=== PATIENT | female | born 1940 | race Caucasian/White ===

== ENCOUNTER 2023-11-30 11:28 | Day surgery (SDC) | payer MEDICARE ==
[~2023-11-30] VITALS: Ht 167.6 cm; Wt 77.8 kg
[~2023-11-30 11:28] MED LIST: ASPIRIN 81M81 MG/TA2 PO; CARDIZEM LA120 MG PO; CRESTOR5 MG PO; ELIQUIS 5MG PO; Famotidine 20 MG TAB PO SCH; GLUCOPHAGE XR500 M1 PO; HYDROmorphone 1 MG/1 ML SYRINGE [PACU/SDC ONLY] IV PRN; LR 1,000 ML IV SCH; Ondansetron 4 MG/2 ML VIAL IV PRN; SYNTHROID0.075 MG/T PO; VESICARE10 MG PO; droPERidol 2.5 MG/ML 2 ML VIAL IV PRN; fentaNYL 50 MCG/ML 1 ML SYRINGE/VIAL [PACU/SDC ONLY] IV PRN; hydrALAZINE 20 MG/ML 1 ML VIAL IV PRN
[2023-11-30 12:46] VITALS: BP 142/86; PULSE 80; TEMP 97.6
[2023-11-30] MEDS ORDERED: Ketorolac 30 MG/ML VIAL ONE (14:19)
[2023-11-30] MEDS ORDERED: Ondansetron 4 MG/2 ML VIAL ONE (14:19)
[2023-11-30] MEDS ORDERED: fentaNYL 50 MCG/ML 2 ML VIAL ONE (14:19)
[2023-11-30] MEDS ORDERED: dexAMETHasone 10 MG/ML VIAL ONE (14:19)
[2023-11-30] MEDS ORDERED: NS 10 ML IV ONE (14:19)
[2023-11-30] MEDS ORDERED: Iohexol 350 - 100 ML VIAL URETER-B ONE ×2 (14:30)
[2023-11-30] MEDS ORDERED: Lidocaine 2% (20 MG/ML) 20 ML UROJET UR ONE (14:30)
[2023-11-30] MEDS ORDERED: oxyCODONE 5 MG TAB PO PRN (16:15)
[2023-11-30] MEDS ORDERED: Naloxone 0.4 MG/ML VIAL IV PRN (16:15)
[2023-11-30] MEDS ORDERED: Hyoscyamine 0.125 MG Sublingual TAB SL PRN (16:15)
[2023-11-30] MEDS ORDERED: Ondansetron 4 MG/2 ML VIAL IV PRN (16:15)
[2023-11-30] MEDS ORDERED: Acetaminophen 325 MG TAB PO PRN (16:15)
[2023-11-30 17:07] VITALS: BP 146/96; PULSE 118; TEMP 97.6
[2023-11-30 17:10] VITALS: TEMP 97
[2023-11-30] MEDS ORDERED: Acetaminophen 500 MG TAB PO SCH (17:10)
[2023-11-30 17:20] VITALS: BP 144/79; PULSE 92
--- NOTE | 2023-11-30 18:13 | NUR ---
1707- PT RETURNS FROM PACU VIA CART TO [facility]. MONITORS ON AND ALARMS SET. CALL LIGHT WITHIN REACH. REPORT RECEIVED FROM ENRIQUE DUENAS. PT ALERT AND ORIENTED. ALREADY ASKING WHEN SHE CAN GO HOME/ PT REQUESTS FOOD AND DRINK. PT DENIES ANY PAIN OR NAUSEA. 1720- PT TAKING FOOD AND DRINK WELL. NO COMPLICATIONS NOTED. 1735- DISCHARGE INSTRUCTIONS GIVEN TO PT. ALL QUESTIONS ANSWERED. PT THEN AMBULATES TO BATHROOM. 1750- PT TRANSFERRED OUT OF THE HOSPITAL VIA WHEELCHAIR. TAKEN OUT BY ANOTHER NURSE AND ASSIST TO PRIVATE VEHICLE DRIVEN BY FRIEND.
== END 2023-11-30 17:50 | disposition home or self-care (01) ==
LOC: SDCO 11:28
DX: C67.9 Malignant neoplasm of bladder, unspecified (principal); N39.41 Urge incontinence; R31.0 Gross hematuria; R35.0 Frequency of micturition; R35.1 Nocturia; Z79.82 Long term (current) use of aspirin; Z79.01 Long term (current) use of anticoagulants
CPT/HCPCS: C1769; J0690; J1100; J1885; J1920; J2405; J2704; J3010; J7120; Q9967

== ENCOUNTER 2023-12-03 08:55 | Inpatient (IN) | payer MEDICARE ==
[~2023-12-03] VITALS: Ht 167.6 cm; Wt 78.6 kg
[2023-12-03] VITALS (8 sets, daily range): BP systolic 100–147; BP diastolic 63–97; PULSE 80–93; TEMP 97.9–98.4
[~2023-12-03 08:55] MED LIST changes: -Famotidine 20 MG TAB PO SCH; -HYDROmorphone 1 MG/1 ML SYRINGE [PACU/SDC ONLY] IV PRN; -LR 1,000 ML IV SCH; -Ondansetron 4 MG/2 ML VIAL IV PRN; -droPERidol 2.5 MG/ML 2 ML VIAL IV PRN; -fentaNYL 50 MCG/ML 1 ML SYRINGE/VIAL [PACU/SDC ONLY] IV PRN; -hydrALAZINE 20 MG/ML 1 ML VIAL IV PRN
--- NOTE | 2023-12-03 11:20 | NUR ---
Patient admitted to room 325. Arrival via EMS from [place]. Report from Nurse in [place]. Lucero to DD with blood urine/clots noted. Int. Medication list corrected from list patient provided. Hospitalsit and urology made aware of her arrival.
[2023-12-03] MEDS ORDERED: NS Irrig Soln 3000 ML SOLN IRP PRN (12:00)
--- NOTE | 2023-12-03 12:15 | NUR ---
[address] bailey inserted as ordered. Cbi started. Patient tolerted well. Minimal reports of pain. Patient remains NPO. Hospitals[facility] rounding.
[2023-12-03] MEDS ORDERED: cefTRIAXone 1 G in Water For Injection,Sterile 10 ML IV SCH (12:30)
--- NOTE | 2023-12-03 13:05 | NUR ---
Patient resting in bed. CBI to slow rate. Clearing nicely. No clots seen. Iv antibioitcs as ordered. Spoke with Marva, made her aware unable to obtain urine culture due to CBI started, she is aware Culture was obtained at [place].
[2023-12-03] MEDS ORDERED: Ondansetron 4 MG/2 ML VIAL IV PRN (13:15)
[2023-12-03] MEDS ORDERED: Insulin Lispro (HumaLOG) SQ SCH (17:00)
--- NOTE | 2023-12-03 18:29 | NUR ---
Patient resting in bed. rounded this afternoon and plan of care reviewed. questions answered. She did well with dinner. no n/v. Cbi to slow/mod rate. pink tinged output, minimal clots seen. int. scds ble. Will report off to nightnurse
[2023-12-03] MEDS ORDERED: Rosuvastatin 5 MG **** subs to Atorvastatin 10 MG PO SCH (21:00)
[2023-12-03] MEDS ORDERED: Atorvastatin 10 MG TAB PO SCH (21:00)
[2023-12-03] MEDS ORDERED: dilTIAZem CD (24-HR) 120 MG CAP PO SCH (21:00)
[2023-12-04] VITALS (11 sets, daily range): BP systolic 109–134; BP diastolic 71–89; PULSE 75–94; TEMP 97.5–98.3
--- NOTE | 2023-12-04 01:30 | NUR ---
PT C/O INCREASED BLADDER DISCOMFORT, NOT SEEING ANY DRAINAGE FROM MARCIAL, CBI RUNNING AT MODERATE RATE, ASPIRATED APPROX 30CC OF DARK RED CLOTS USING 60CC SYRINGE AND STERILE H20, MARCIAL IMMEDIATELY BEGAN DRAINING PINK TO RED URINE. PT REPORTS FEELING DECREASED DISCOMFORT AFTERWARDS.
[2023-12-04] MEDS ORDERED: Acetaminophen 500 MG TAB PO PRN (07:15)
[2023-12-04] MEDS ORDERED: oxyCODONE 5 MG TAB PO PRN (07:15)
[2023-12-04] MEDS ORDERED: Morphine 4 MG/ML VIAL IV PRN (07:15)
[2023-12-04] MEDS ORDERED: Hyoscyamine 0.125 MG Sublingual TAB SL PRN (07:15)
[2023-12-04 07:19] LABS: BASO # 0.1 K/mm3 (0.0-0.2); BASO % 0.8 % (0.0-2.0); EOS # 0.2 K/mm3 (0.0-0.7); HEMOGLOBIN 11.5 g/dl (12.5-16.0); LYMPH # 2.4 K/mm3 (1.2-3.4); LYMPH % 32.9 % (20.0-51.0); MEAN CELL VOLUME 94 fl (80.0-100.0); MEAN CORPUSCULAR HEMOGLOBIN 32 pg (27-31); MEAN CORPUSCULAR HGB CONC 34 g/dl (33.0-37.0); MEAN PLATELET VOLUME 9.9 fl (7.4-10.4); MONO # 0.8 K/mm3 (0.1-0.6); MONO % 10.2 % (1.7-9.3); PLATELET COUNT 253 K/mm3 (130-400); RED BLOOD COUNT 3.63 M/mm3 (4.10-5.30)
[2023-12-04 07:28] LABS: CALCIUM 8.5 mg/dL (8.4-10.2); CREATININE, serum 0.81 mg/dL (0.57-1.11); POTASSIUM 4.3 mEq/L (3.5-4.5)
[2023-12-04] MEDS ORDERED: Dextrose 50% Water 25 GM/50 ML SYRINGE IV PRN (07:30)
[2023-12-04] MEDS ORDERED: Glucagon 1 MG VIAL IM PRN (07:30)
[2023-12-04] MEDS ORDERED: Dextrose (Glucose) 15 GM (4 x 3.75 GM) Chewable TABLET PACK PO PRN (07:30)
--- NOTE | 2023-12-04 07:41 | NUR ---
Patient called out reporting pelvic pain/discomfort. Hand irrigation completed with x3. Multiple clots obtained. Dr. Torres notifed and orders received. Patient feeling better now. Heavy blankets removed, she reports feeling warm this am. Breakfast ordered, her daughter at bedside.
[2023-12-04] MEDS ORDERED: Solifenacin 5 MG **** subs to Oxybutynin XL 5 MG PO SCH (09:00)
--- NOTE | 2023-12-04 09:59 | NUR ---
Hospitalist and rounded, plan of care reviewed. Patient in good spirits without pain. Lucero to DD with pink output, no clots seen. Jose hatfield
--- NOTE | 2023-12-04 10:04 | NUR ---
SW met with patient to complete intake and discuss discharge planning. Patient informed SW that she lives in her home alone in [place], her nearest relative is her cousin Candelario Zeng that lives in [place]. Patient informed SW that she has DPOA on file in her home that are her children Pamela Del Real and Shira Alicia (she does not have their phone information available at this time). Currently NOK listed on her chart is her who past 3 yrs ago and needs to be updated/removed. SW will make note with SW treating and pumping supervisor. Patient informed SW that her PCP is MARYLIN Carrero in [place], and pharmacy of choice is [facility] in [place], that assist with mail delivery prescriptions. Patient reports that currently she only uses a shower chair in her home, no other DMEs reported. Patient reports that she is independent with her ADLs, but is interested in HH care due to weakness. Patient is pending OT/PT assessment, SW will follow for recommendations and reconnect with patient on options. Patient is anticipating to discharge back to her home at this time, pending any further medical recommendations.
--- NOTE | 2023-12-04 11:57 | NUR ---
Data: Patient accepted spiritual care visit offered during Remote Pilot Operator rounds. Patient attends [facility] in [place]. Assessment: Prayer and bible reading are important to Patient. Patient has a positive attitude regarding this stay in the hospital. Plan of Care: Remote Pilot Operator provided, supportive listening, a bible, and a prayer. Chaplains will remain available as needed/requested while Patient is admitted to this hospital.
--- NOTE | 2023-12-04 13:55 | NUR ---
Patient sitting up in chair, visiting with family. We ambulated halls and she did well. Tolerated lunch. blood sugar stable. Cbi continues to a slow rate, dark pink output with few clots. Will monitor
--- NOTE | 2023-12-04 15:34 | NUR ---
PATIENT TALKING ON PHONE, IN POSITIVE SPIRITS. WILL MONITOR
--- NOTE | 2023-12-04 18:04 | NUR ---
Patient up and we ambulated entire third floor and she did well. Gait steady. Stand by assist. Lucero to DD with Slow CBI. Minimal clots seen and reddish orange in color. Int. Vss, tele on. Patient sitting up in chair. Did well with dinner, will report off to nightnurse.
[2023-12-05] VITALS (13 sets, daily range): BP systolic 100–127; BP diastolic 49–79; PULSE 64–103; TEMP 97.7–99.2
--- NOTE | 2023-12-05 04:35 | NUR ---
pt c/o bladder feeling full, uncomfortable, CBI has been running slowly, no urine in bailey tubing, aspirated approx 20cc of thick blood clots from catheter, urine immediately began draining into bag again. increased CBI rate at this time
--- NOTE | 2023-12-05 08:51 | NUR ---
Pt doing well this morning, no complaints of pain at this time. CBI running at slow rate, output is peachy colored, no clots seen at this time. Pt has had breakfast, no complaints. No needs at this time, will continue to monitor
--- NOTE | 2023-12-05 09:04 | NUR ---
Notified Dr Jones of pts heart rate. Pt was just up ambulating with PT. Pt now sitting in the chair. Heart rate continues to be irregular from low 100s to 140
[2023-12-05] MEDS ORDERED: dilTIAZem CD (24-HR) 120 MG CAP PO ONE (09:45)
--- NOTE | 2023-12-05 12:00 | NUR ---
Pt doing well, no needs or complaints at this time. Dr Roblero did see pt, no new orders
--- NOTE | 2023-12-05 16:00 | NUR ---
Assisted pt with taking a shower. Pt did well, no complaints of pain. CBI continues to run at slow to moderate rate. Output is orange in color due to medications.
[2023-12-05] MEDS ORDERED: Polyethylene Glycol 3350 17 GM PDS PO PRN (19:00)
[2023-12-05] MEDS ORDERED: Melatonin 3 MG TAB PO PRN ×2 (23:30)
[2023-12-06] VITALS (11 sets, daily range): BP systolic 113–154; BP diastolic 74–97; PULSE 75–95; TEMP 97.4–98.3
--- NOTE | 2023-12-06 06:45 | NUR ---
irrigated bailey x2 this shift, several moderate sized dark brown clots, CBI at moderate rate. started on miralax for no bm and melatonin for sleep
[2023-12-06 06:50] LABS: BASO # 0.1 K/mm3 (0.0-0.2); BASO % 1.1 % (0.0-2.0); EOS # 0.3 K/mm3 (0.0-0.7); EOS % 4.2 % (0.0-4.0); GRAN # 3.4 K/mm3 (1.4-6.5); GRAN % 45.5 % (42.2-75.2); HEMOGLOBIN 11.5 g/dl (12.5-16.0); LYMPH # 3.1 K/mm3 (1.2-3.4); LYMPH % 41.4 % (20.0-51.0); MEAN CELL VOLUME 93 fl (80.0-100.0); MEAN CORPUSCULAR HEMOGLOBIN 31 pg (27-31); MEAN CORPUSCULAR HGB CONC 33 g/dl (33.0-37.0); MEAN PLATELET VOLUME 9.7 fl (7.4-10.4); MONO # 0.6 K/mm3 (0.1-0.6); MONO % 7.5 % (1.7-9.3); PLATELET COUNT 282 K/mm3 (130-400); RED BLOOD COUNT 3.69 M/mm3 (4.10-5.30)
[2023-12-06 06:54] LABS: HEMATOCRIT 34.4 % (37.0-47.0)
[2023-12-06 07:12] LABS: CALCIUM 8.3 mg/dL (8.4-10.2); CREATININE, serum 0.81 mg/dL (0.57-1.11); MAGNESIUM 2.1 mg/dL (1.6-2.6); POTASSIUM 4.1 mEq/L (3.5-4.5)
--- NOTE | 2023-12-06 10:13 | NUR ---
Lucero catheter primed and pulled. Educated pt on using the urinal to void and then us monitoring her output. Informed her that Dr Brown would be in this afternoon to see her
--- NOTE | 2023-12-06 10:46 | NUR ---
merchandise worker was informed pt is a likely discharge today. SW met with pt to provide Medicare.gov list for Home Health. Pt reports she was just interested in information as she feels well and steady to go home. SW noted PT reccomend this per pt to maintain independence at home. Pt reports she was just interested to make her children happy. Pt reports she still goes into the community and has coffee and socializes with friends on Wednesday's. SW informed her she would have to be home bound. Pt verbalized understanding and was agreeable to following up with her PCP if she wanted this. SW completed IM from Medicare. She signed and verbalized understanding. Copy provided and original in chart. Discharge Plan: home
--- NOTE | 2023-12-06 13:00 | NUR ---
Pt continues to do well, voiding without difficulty
--- NOTE | 2023-12-06 15:57 | NUR ---
Pt has voided multiple times. Only first void had clots. Output is now yellow, slight orange tinge. Pt taking azo. No complaints of pain, pt hoping to get to go home
--- NOTE | 2023-12-06 17:40 | NUR ---
Reviewed discharge instructions with pt. Discussed her making follow up appointment with cardiology. Informed her urology would call to make her follow up appointment. Reviewed medication in detail. INT removed from left wrist
== END 2023-12-06 17:57 | disposition home or self-care (01) | DRG 696 ==
LOC: SURG 08:55
PROVIDERS: ADMIT Internal Medicine
DX: R31.9 Hematuria, unspecified (principal); C67.9 Malignant neoplasm of bladder, unspecified; N39.0 Urinary tract infection, site not specified; I48.0 Paroxysmal atrial fibrillation; I10 Essential (primary) hypertension; E11.9 Type 2 diabetes mellitus without complications; Z79.84 Long term (current) use of oral hypoglycemic drugs; E03.9 Hypothyroidism, unspecified; Z66 Do not resuscitate
CPT/HCPCS: J0696